=== PATIENT | male | born 1945 | race Caucasian/White ===

== ENCOUNTER → 2017-04-02 | Outpatient (CLI) | payer OTHER, MEDICARE ==
[~2017-04-02] MED LIST: AMLO5TAB2 PO; ANT25 PO
--- NOTE | 2017-04-02 11:18 | DIAGNOSTIC IMAGING REPORT ---
CHEST CT WITHOUT CONTRAST CT DOSE: 234.27 mGycm HISTORY: Follow-up pulmonary nodule. TECHNIQUE: Multiaxial CT images of the chest were performed without contrast. COMPARISON: Chest CT 09/19/2016. FINDINGS: The central airways are patent. No pleural effusions. No pneumothorax. Stable 9 mm irregular density within the left lung apex on image 56. Stable 6 mm nodule within the right lung apex on image 58. There is a 2 mm subpleural nodule within the right upper lobe on image 108. This is of doubtful clinical significance given its small size. No mediastinal or hilar lymphadenopathy. The heart is normal in size. The visualized liver, spleen, and adrenal glands are unremarkable. IMPRESSION: Stable biapical pulmonary nodules with the largest on the left measuring 9 mm. Continued follow-up as described below. Please refer to below summary of Fleischner criteria recommendations for follow-up of incidental CT nodules (Deepak Garay, Guidelines for management of small pulmonary nodules detected on CT scans: A statement from the Fleischner Society, Radiology 237: [id number].) SOLID NODULES Solitary nodule size: <6 mm * Low risk patients: no follow-up needed * high risk patients: optional CT at 12 months Solitary nodule size: 6-8 mm * Low risk patients: follow-up at 6-12 months, then consider further follow-up at 18-24 months * high risk patients: initial follow-up CT at 6-12 months and then at 18-24 months if no change Solitary nodule size: >8 mm * either low or high risk patients - consider follow-up CT at 3 months, and/or CT-PET, and/or biopsy Multiple nodules size: <6 mm * Low risk patients: no routine follow-up * high risk patients: optional CT at 12 months Multiple nodules size: 6-8 mm * Low risk patients: follow-up at 3-6 months, then consider further follow-up at 18-24 months * high risk patients: follow-up at 3-6 months, then at 18-24 months if no change Multiple nodules size: >8 mm * Low risk patients: follow-up at 3-6 months, then consider further follow-up at 18-24 months * high risk patients: follow-up at 3-6 months, then at 18-24 months if no change Note: newly detected indeterminate nodule in persons 35 years of age or older. * Low risk patients: minimal or absent history of smoking and/or other known risk factors * high risk patients: history of smoking or of other known risk factors (e.g. first degree relative with lung cancer, or exposure to asbestos, radon, uranium) * if a nodule up to 8 mm is partly solid or is ground glass further follow-up is required after 24 months to exclude possible slow growing adenocarcinoma (IZAIAH) SUBSOLID NODULES Solitary pure ground-glass nodule * nodule size <6 mm - no CT follow-up required * nodule size >=6 mm - follow-up CT at 6-12 months, then every 2 years until 5 years Solitary part-solid nodule * nodule size <6 mm - no CT follow-up required * nodule size >=6 mm - follow-up CT at 3-6 months. If unchanged, and solid component remains <6 mm, then annual follow-up for 5 years Multiple subsolid nodules * nodule size <6 mm - follow-up CT at 3-6 months, consider further follow-up at 2 and 4 years if stable * nodule size >=6 mm - follow-up CT at 3-6 months, subsequent management based on the most suspicious nodule(s) Electronically signed by: Chadd Cat M.D. 04/02/2017 11:16 AM Dictated Date/Time: 04/02/2017 11:10 AM
== END | disposition home or self-care (01) ==
LOC: C.CTS 10:33
PROVIDERS: ATTEND Family Medicine
DX: R91.1 Solitary pulmonary nodule (principal)

== ENCOUNTER → 2017-10-04 | Outpatient (CLI) | payer OTHER, MEDICARE ==
--- NOTE | 2017-10-04 13:19 | DIAGNOSTIC IMAGING REPORT ---
(CHEST) THORAX WITHOUT CT DOSE: 251.20 mGycm HISTORY: RT SIDED PULMONARY NODULE TECHNIQUE: Multiaxial CT images of the chest were performed without contrast. A dose lowering technique was utilized adhering to the principles of ALARA. COMPARISON: Chest CT 04/02/2017. FINDINGS: Stable 8 mm irregular nodule within the left lung apex on image 54. Stable 5 mm nodule within the right lung apex on image 56. There is a new 3 mm nodule within the left upper lobe on image 83. There is a new 3 mm subpleural nodule within the superior segment of the left lower lobe on image 111. There is a new 3 mm groundglass nodule within the left lower lobe on image 172. A few new tiny scattered tree-in-bud nodular densities within the right lung base. These measure up to 3 mm. No new focal lung consolidations. The central airways are patent. T1 vertebral body hemangiomas again noted. No mediastinal or hilar lymphadenopathy. The heart is normal in size. The unenhanced liver, spleen, and adrenal glands are unremarkable. Normal caliber thoracic aorta. IMPRESSION: 1. No change in the biapical pulmonary nodules with the largest on the left measuring 8 mm. Continued follow-up as detailed below. 2. There are few new additional 3 mm groundglass nodules within the lungs and a few tiny tree-in-bud nodular opacities within the right lung base. These favor mild inflammatory/infectious change. These also bear watching on future examinations. Please refer to below summary of Fleischner criteria recommendations for follow-up of incidental CT nodules (Deepak Garay, Guidelines for management of small pulmonary nodules detected on CT scans: A statement from the Fleischner Society, Radiology 237: [phone].) SOLID NODULES Solitary nodule size: <6 mm * Low risk patients: no follow-up needed * high risk patients: optional CT at 12 months Solitary nodule size: 6-8 mm * Low risk patients: follow-up at 6-12 months, then consider further follow-up at 18-24 months * high risk patients: initial follow-up CT at 6-12 months and then at 18-24 months if no change Solitary nodule size: >8 mm * either low or high risk patients - consider follow-up CT at 3 months, and/or CT-PET, and/or biopsy Multiple nodules size: <6 mm * Low risk patients: no routine follow-up * high risk patients: optional CT at 12 months Multiple nodules size: 6-8 mm * Low risk patients: follow-up at 3-6 months, then consider further follow-up at 18-24 months * high risk patients: follow-up at 3-6 months, then at 18-24 months if no change Multiple nodules size: >8 mm * Low risk patients: follow-up at 3-6 months, then consider further follow-up at 18-24 months * high risk patients: follow-up at 3-6 months, then at 18-24 months if no change Note: newly detected indeterminate nodule in persons 35 years of age or older. * Low risk patients: minimal or absent history of smoking and/or other known risk factors * high risk patients: history of smoking or of other known risk factors (e.g. first degree relative with lung cancer, or exposure to asbestos, radon, uranium) * if a nodule up to 8 mm is partly solid or is ground glass further follow-up is required after 24 months to exclude possible slow growing adenocarcinoma (IZAIAH) SUBSOLID NODULES Solitary pure ground-glass nodule * nodule size <6 mm - no CT follow-up required * nodule size >=6 mm - follow-up CT at 6-12 months, then every 2 years until 5 years Solitary part-solid nodule * nodule size <6 mm - no CT follow-up required * nodule size >=6 mm - follow-up CT at 3-6 months. If unchanged, and solid component remains <6 mm, then annual follow-up for 5 years Multiple subsolid nodules * nodule size <6 mm - follow-up CT at 3-6 months, consider further follow-up at 2 and 4 years if stable * nodule size >=6 mm - follow-up CT at 3-6 months, subsequent management based on the most suspicious nodule(s) Electronically signed by: Chadd Cat M.D. 10/04/2017 1:17 PM Dictated Date/Time: 10/04/2017 1:05 PM
== END | disposition home or self-care (01) ==
LOC: C.CTS 12:26
PROVIDERS: ATTEND Nurse Practitioner Adult Health
DX: R91.1 Solitary pulmonary nodule (principal)

== ENCOUNTER → 2018-07-02 | Outpatient (CLI) | payer OTHER, MEDICARE ==
[2018-07-02 18:42] LABS: BASO % 0.4 %; BASO ABS # 0.03 K/uL (0-0.2); EOS % 2.1 %; EOS ABS # 0.17 K/uL (0-0.5); HEMATOCRIT 41.5 % (42-52); HEMOGLOBIN 14.3 g/dL (14.0-18.0); IG# 0.02 K/uL (0.00-0.02); LYMPH ABS # 2.13 K/uL (1.2-3.4); MEAN CORPUSCULAR HGB CONC 34.5 g/dl (32-36); MEAN PLATELET VOLUME 11.4 fL (7.4-10.4); MONO % 10.9 %; MONO ABS # 0.89 K/uL (0.11-0.59); NEUT % 60.4 %; NEUT ABS # 4.95 K/uL (1.4-6.5); PLATELET COUNT 199 K/uL (130-400); RED CELL DISTRIBUTION WIDTH CV 13.3 % (11.5-14.5); RED CELL DISTRIBUTION WIDTH SD 43.7 fL (36.4-46.3); WHITE BLOOD COUNT 8.19 K/uL (4.8-10.8)
[2018-07-02 19:19] LABS: ALKALINE PHOSPHATASE 77 U/L (45-117); ALT/SGPT 24 U/L (12-78); AST/SGOT 12 U/L (15-37); BLOOD UREA NITROGEN 18 mg/dl (7-18); CALCIUM 8.8 mg/dl (8.5-10.1); CARBON DIOXIDE 25 mmol/L (21-32); CREATININE 1.08 mg/dl (0.60-1.40); GLUCOSE 91 mg/dl (70-99); POTASSIUM 4.2 mmol/L (3.5-5.1); SODIUM 137 mmol/L (136-145); TOTAL PROTEIN 7.5 gm/dl (6.4-8.2)
== END | disposition home or self-care (01) ==
LOC: C.LAB 17:13
PROVIDERS: ATTEND Neuromusculoskeletal Medicine & OMM
DX: R53.83 Other fatigue (principal); R01.1 Cardiac murmur, unspecified; I10 Essential (primary) hypertension; R39.11 Hesitancy of micturition

== ENCOUNTER → 2018-07-04 | Outpatient (CLI) | payer OTHER, MEDICARE ==
--- NOTE | 2018-07-04 16:34 | ECHOCARDIOGRAM REPORT ---
*NOTICE TO RECEIVING DEMOCRAT AGENCY This information is strictly Confidential and protected under [place] law. [place] law prohibits you from making any further disclosure of this information unless further disclosure is expressly permitted by the written consent of the person to whom it pertains or is authorized by law. A general authorization for the release of medical or other information is not sufficient for this purpose. Hospital accepts no responsibility if the information is made available to any other person, INCLUDING THE PATIENT. Interpretation Summary * Name: ARDEN SPARROW Study Date: 07/04/2018 02:46 PM BP: 127/66 mmHg * Patient Location: [facility] [place] HR: 63 * : 1945 (M/d/yyyy) Gender: Male Height: 67 in * Age: 73 yrs Ethnicity: [place] Weight: 155 lb * Ordering Physician: Josiah Torre DO * Performed By: Lisette Pavon RDCS * * Reason For Study: Murmur * BSA: 1.8 m2 * -- Conclusions -- * Left ventricular systolic function is normal. * Aortic valve sclerosis moderate, without significant aortic valvular stenosis. * Right ventricular systolic pressure is normal. Procedure Details * A complete two-dimensional transthoracic echocardiogram was performed (2D, M-mode, Doppler and color flow Doppler). Left Ventricle * The left ventricle is normal in size. * There is normal left ventricular wall thickness. * Ejection Fraction = 60-65%. * Left ventricular systolic function is normal. * The left ventricular wall motion is normal. Right Ventricle * The right ventricle is normal in size and function. Atria * The left atrial size is normal. * Right atrial size is normal. Mitral Valve * The mitral valve is grossly normal. * Significant mitral regurgitation is absent. Tricuspid Valve * The tricuspid valve is not well visualized, but is grossly normal. * There is trace tricuspid regurgitation. * Right ventricular systolic pressure is normal. Aortic Valve * There is heavy calcification involving the non coronary cusp which is also poorly mobile * Aortic valve sclerosis moderate, without significant aortic valvular stenosis. * No hemodynamically significant valvular aortic stenosis. * Mild aortic regurgitation. * There is an eccentric jet of aortic insufficiency directed against the anterior mitral leaflet. Pulmonic Valve * The pulmonic valve is not well seen, but is grossly normal. Great Vessels * The aortic root is normal size. Pericardium/Pleural * There is no pericardial effusion. Great Vessels * Normal inferior vena cava diameter and respiratory variation suggests normal central venous pressure. MMode 2D Measurements and Calculations IVSd 0.93 cm LVIDd 4.6 cm LVIDs 2.9 cm LVPWd 1.1 cm IVS/LVPW 0.84 FS 36.8 % EDV(Teich) 96.3 ml ESV(Teich) 32.1 ml EF(Teich) 66.7 % EDV(cubed) 96.0 ml ESV(cubed) 24.3 ml EF(cubed) 74.7 % LV mass(C)d 161.0 grams LV mass(C)dI 88.7 grams/m\S\2 SV(Teich) 64.2 ml SI(Teich) 35.4 ml/m\S\2 SV(cubed) 71.7 ml SI(cubed) 39.5 ml/m\S\2 Ao root diam 3.4 cm Ao root area 8.9 cm\S\2 ACS 1.5 cm LA dimension 3.7 cm asc Aorta Diam 3.4 cm LA/Ao 1.1 LVOT diam 2.0 cm LVOT area 3.0 cm\S\2 LVAd ap4 24.6 cm\S\2 LVLd ap4 7.8 cm EDV(MOD-sp4) 64.7 ml EDV(sp4-el) 65.9 ml LVAs ap4 12.8 cm\S\2 LVLs ap4 5.8 cm ESV(MOD-sp4) 24.1 ml ESV(sp4-el) 23.8 ml EF(MOD-sp4) 62.7 % EF(sp4-el) 63.8 % LVAd ap2 31.4 cm\S\2 LVLd ap2 8.1 cm EDV(MOD-sp2) 106.5 ml EDV(sp2-el) 103.6 ml LVAs ap2 16.1 cm\S\2 LVLs ap2 6.2 cm ESV(MOD-sp2) 36.7 ml ESV(sp2-el) 35.6 ml EF(MOD-sp2) 65.5 % EF(sp2-el) 65.7 % LVLd %diff 3.2 % EDV(MOD-bp) 83.8 ml LVLs %diff 5.1 % ESV(MOD-bp) 30.6 ml EF(MOD-bp) 63.5 % SV(MOD-sp4) 40.6 ml SI(MOD-sp4) 22.4 ml/m\S\2 SV(MOD-sp2) 69.8 ml SI(MOD-sp2) 38.5 ml/m\S\2 SV(MOD-bp) 53.2 ml SI(MOD-bp) 29.3 ml/m\S\2 SV(sp4-el) 42.1 ml SI(sp4-el) 23.2 ml/m\S\2 SV(sp2-el) 68.1 ml SI(sp2-el) 37.5 ml/m\S\2 Doppler Measurements and Calculations MV E max farhat 80.5 cm/sec MV A max farhat 82.0 cm/sec MV E/A 0.98 MV dec time 0.25 sec Ao V2 max 200.9 cm/sec Ao max PG 16.1 mmHg Ao max PG (full) 9.3 mmHg GUDELIA(V,A) 2.0 cm\S\2 GUDELIA(V,D) 2.0 cm\S\2 LV V1 max PG 6.8 mmHg LV V1 max 130.4 cm/sec PA V2 max 124.9 cm/sec PA max PG 6.2 mmHg PA acc slope 692.6 cm/sec\S\2 PA acc time 0.13 sec TR max farhat 210.4 cm/sec PA pr(Accel) 22.0 mmHg
== END | disposition home or self-care (01) ==
LOC: C.CPL 14:34
PROVIDERS: ATTEND Neuromusculoskeletal Medicine & OMM
DX: R00.1 Bradycardia, unspecified (principal)

== ENCOUNTER 2021-02-14 11:14 | Observation (INO) ==
--- NOTE | 2021-02-13 10:53 | Anesthesiology Consultation ---
Date of Service February 13, 2021 Assessment & Plan (1) Encounter for pre-operative examination: Chart Review Chart Review: Acceptable Risk for Surgery (pending PRP DOS ) and Patient NOT seen in Pre Admission Testing -Will check PRP stat AM of surgery Per nursing assessment 02/13/2021, patient denies any recent travel. No known Covid infection in the past 90 days. No known Covid positive contacts or Covid related symptoms. Covid test 02/10/2021 = negative I&D right finger 01/19/2021 = done under MAC. No anesthesia issues noted per anesthesia record. History Surgery Operation Date: 02/14/21 13:00 Proposed Procedures p Right Ring Finger Partial Amputation - Nikita Patel MD Height/Weight Height: 5 ft 6.5 in Weight: 72.575 kg Allergies Allergy/AdvReac Type Severity Reaction Status Date / Time cefuroxime Allergy Mild Blisters Verified 02/13/21 09:59 Medications Home Medications Medication Instructions Recorded Confirmed Last Taken cholecalciferol (vitamin D3) 25 1,000 unit PO QAM 06/10/19 02/13/21 01/19/21 12:00 mcg (1,000 unit) capsule cyanocobalamin (vitamin B-12) 2,500 mcg PO QAM 06/10/19 02/13/21 01/19/21 12:00 2,500 mcg tablet multivitamin 1 tab PO QAM 06/29/19 02/13/21 01/19/21 12:00 omeprazole 40 mg capsule,delayed 40 mg PO QAM #90 cap 02/08/20 02/13/21 01/19/21 12:00 release atorvastatin 20 mg tablet 10 mg PO HS #90 tab 02/09/20 02/13/21 01/18/21 22:00 hydroxyzine HCl 25 mg tablet See Rx Instructions PO .qhs PRN 07/11/20 02/13/21 Unknown #60 tab cyclobenzaprine 10 mg tablet 10 mg PO HS PRN #7 tab 10/11/20 02/13/21 Unknown naproxen 500 mg tablet 500 mg PO BID PRN #14 tab 10/11/20 02/13/21 Unknown amlodipine 10 mg tablet 10 mg PO QAM #90 tab 12/20/20 02/13/21 01/19/21 12:00 lisinopril 40 mg tablet 40 mg PO QAM #90 tab 12/20/20 02/13/21 01/19/21 12:00 hydrocodone-acetaminophen 1 - 2 tab PO Q4H PRN #5 tab NS 01/22/21 02/13/21 Unknown sulfamethoxazole-trimethoprim 1 tab PO BID 7 Days #14 tab 01/22/21 02/13/21 Unknown [Bactrim DS] Past Medical History Medical History Cardiac murmur Does not follow with cardiology ECHO in 06/2018 showed AV sclerosis without significant AV stenosis GERD (gastroesophageal reflux disease) Hx of vertigo Hyperlipidemia Hypertension Lung nodule HX-UNDER OBSERVATION Osteoarthritis Past Family History Family History Brother Family history of diabetes mellitus Father Family history of esophageal cancer Other Family hx of colon cancer No family history of adverse response to anesthesia Denies family history of Ovarian cancer Prostate cancer Myocardial infarction Breast cancer Colorectal cancer Past Surgical History Surgical History History of carpal tunnel release RT/LEFT History of cataract surgery RT/LEFT History of colonoscopy History of tooth extraction Status post incision and drainage 01/19/21 Dr. Nikita Patel- Right ring finger incision and drainage Social History Smoking Status: Current some day smoker tobacco type: cigarettes Smoking cigarettes per day: 2 CIG WITHIN A WEEK Do You Dip or Chew Tobacco: No Hx Alcohol Use: Yes Alcohol type: beer alcohol intake frequency: a few times a month Hx Substance Use: Yes substance use type: marijuana Substance Use Type Other:: ON OCC SMOKES MARIJUANA-WILL REFRAIN Last Used Substance Other:: LAST USED 2 WEEKS AGO Testing Laboratory Results Laboratory Tests 02/08/21 02/09/21 10:49 11:22 WBC 8.89 Hgb 14.1 Hct 41.6 L Plt Count 307 Creatinine 1.09 Electrocardiogram Date: 01/19/21 Findings: + NSR @ (69 bpm) and + no change from (July 25, 2016 for cardio) Normal EKG. Echocardiogram Date: 07/04/18 EF: 60-65% LV Function: normal RWMA: + none Other Findings: no LVH Left ventricular systolic function is normal. Aortic valve sclerosis moderate, without significant aortic valvular stenosis. Mild AR. Right ventricular systolic pressure is normal. Other Testing Chest CT 07/29/2020 = no acute intrathoracic abnormality. No pleural effusion, airspace consolidation or adenopathy. By apical pleuralparenchymal scarring with unchanged irregular solid nodules measuring up to 8 mm within the left lung apex. Findings are unchanged dating back to 04/10/2016 suggestive of benign etiology. No new or enlarging nodules identified.
[~2021-02-14 11:14] MED LIST changes: -AMLO5TAB2 PO; -ANT25 PO; +LACTATED RINGER'S 1,000 ML IV SCH; +LR 15ML/HR IV SCH; +ROPIVACAINE 0.5% 5 MG/ML 30 ML VIAL ONE; +ceFAZolin 2000MG 2,000 MG/15 ML SYR IV SCH
[2021-02-14 12:00] LABS: BUN Creatinine Ratio 10.6 (10-20); Calcium 9.1 mg/dl (8.5-10.1); Creatinine Clr Calc Pharmacy 56.9 ml/min; Est GFR (Non-African American) 70.7
[2021-02-14] MEDS ORDERED: MIDAZOLAM HCL 1 MG/ML 2ML VIAL ONE ×2 (12:27→13:47)
[2021-02-14] MEDS ORDERED: fentaNYL citrate 100 MCG/2 ML VIAL ONE ×2 (12:27→14:21)
[2021-02-14] MEDS ORDERED: ATROPINE SULFATE 0.1 MG/ML 10ML SYR IV PRN (12:46)
[2021-02-14] MEDS ORDERED: ONDANSETRON INJ 2 MG/ML 2 ML VIAL IV PRN ×2 (12:46→16:39)
--- NOTE | 2021-02-14 13:30 | History & Physical Bridge Note ---
Date of Service February 14, 2021 History & Physical Bridge Note I have examined the patient, reviewed the History & Physical and in the interval since the performance of the History & Physical I have noted the following changes of clinical significance: no changes noted
[2021-02-14] MEDS ORDERED: LIDOCAINE HCL 1% 20 ML VIAL ONE (13:52)
[2021-02-14] MEDS ORDERED: BUPIVACAINE 0.5 % 5 MG/1 ML MPF 30ML VIAL ONE (13:52)
[2021-02-14] MEDS ORDERED: LIDOCAINE HCL 2% 2 ML VIAL/AMP(20MG/ML) INFIL ONE (14:07)
[2021-02-14] MEDS ORDERED: ONDANSETRON INJ 2 MG/ML 2 ML VIAL ONE (14:07)
[2021-02-14] MEDS ORDERED: PROPOFOL IV EMULSION 10 MG/ML 20 ML VIAL IV ONE ×2 (14:07)
[2021-02-14] MEDS ORDERED: PHENYLEPHRINE HCL 10 MG/ML VIAL ONE (14:13)
--- NOTE | 2021-02-14 14:47 | Fluoroscopy Report ---
FL finger RT 2V CLINICAL HISTORY: RIGHT RING FINGER AMPUTATION COMPARISON STUDY: Right fourth finger radiographs February 01, 2021. Right hand MRI February 08, 2021. FLUOROSCOPY TIME: 1 second. FLUOROSCOPIC IMAGES: 1 FINDINGS: Fluoroscopy was provided during amputation of the right fourth finger at the level of the p roximal shaft of the middle phalanx. Expected postoperative findings are noted. IMPRESSION: Fluoroscopy provided during right fourth finger amputation, as described above. ACT 112: Negative or not required by law. Electronically signed by: Kamari Woo M.D. 02/14/2021 2:46 PM
--- NOTE | 2021-02-14 14:59 | Operative Report ---
Post Operative Report Pre & Post Diagnosis Operation Date: 02/14/21 13:00 Pre-Op Diagnosis: Right Ring Finger Osteomyelitis Post-Op Diagnosis: Right Ring Finger Osteomyelitis I identified the patient and participated in the time-out.: Yes Procedure Operation Date: 02/14/21 13:00 Actual Procedures p Right Ring Finger Partial Amputation(Right) - Nikita Patel MD Surgeon Nikita Patel MD Field Sampling Technician Lesvia Zaragoza, no resident or fellow available. Estimated Blood Loss 2 Findings Consistent with Post-Op Diagnosis Specimens Swab for culture, bone for culture and amputated finger for specimen to check for osteomyelitis. Anesthesia Type General Regional Disposition Accompanied Patient To Recovery: No Disposition: Recovery Room Indications Patient 76. He had a injury to the right ring finger with a snowblower. He tri ed to treat this at home initially and about 7 or 8 days later came in with what turned out to be probable septic arthritis of the DIP joint. This was treated with surgery however things have progressively worsened. He has continued swelling and some drainage as well as radiographic evidence on x-ray and MRI of probable osteomyelitis in the tissue/bone surrounding the DIP joint. Options were discussed and I recommended a partial amputation and he agreed to proceed. Description of Procedure Informed consent obtained. Patient identified. He identified the operative site as the right ring finger. I marked with my initials. A preoperative surgical timeout was performed. Preop dose of IV antibiotics was given. He was taken to the operating room positioned supine on the operating room table. Tourniquet applied to the right arm. The limb was prescrubbed prepped and draped with Betadine in the usual sterile fashion. The DIP joint was floppy and unstable. The finger was mildly swollen and erythematous. The dorsal wound was completely healed. There was a 2 mm opening on the volar aspect of the DIP flexion crease where there was some drainage present. Fluoroscopic guidance was utilized throughout the procedure. The limb was exsanguinated with the Esmarch. The finger was not wrapped with the wrapping began at the level of the hand proceeded proximally and the tourniquet was inflated to 225 mmHg. A fishmouth incision was marked out. This was made to begin just proximal to the dorsal and particularly the palmar wound. The skin was then 5 sized full- thickness. This was followed by the division of the extensor tendon dorsally and some subperiosteal dissection proximally. Volarly the flexor digitorum profundus tendon was identified and transected. The bone was then removed using fluoroscopic guidance just distal to the midpoint. Unfortunately did not have adequate soft tissue to close this so an additional 2 mm were removed. This preserved 1-1/2 cm of the middle phalanx. The wound was copiously irrigated with sterile saline. There was no evidence of infection. There was some edema in the tissues but no purulent material. The bone was hard and not infected. The bone edges were beveled. The skin was then closed with 4-0 nylon using horizontal mattress and simple sutures. Tourniquet was let down and meticulous hemostasis was performed with electrocautery. A bulky soft sterile dressing was applied Xeroform 4 x 4's gauze wrap and Coban. On the back table a a culture was obtained through the volar wound in the finger which then entered into the DIP joint. Bone was resected from the distal phalanx at the level of the joint after opening this area up dorsally. This bone was very soft. The finger itself was sent for specimen particularly looking for osteomyelitis. These instruments were passed off and different instruments over utilized. The rongeur was cleaned with alcohol. He was awakened from anesthesia without difficulty and taken to the recovery room in stable condition. There were no complications. Counts were correct. Specimens were as mentioned above. Blood loss was 2 cc. At the conclusion of the operation I called his informed of my findings postop instructions were given. Plan on admitting him to the hospital. He will receive intravenous antibiotics. We will check the cultures and also get blood cultures. 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 We may consider a short course of intravenous antibiotics or changing him to orals depending on the circumstances. I attest to the content of the Intraoperative Record and any orders documented therein. Any exceptions are noted below.
--- NOTE | 2021-02-14 15:01 | Operative Report ---
Post Operative Report Pre & Post Diagnosis Operation Date: 02/14/21 13:00 Pre-Op Diagnosis: Right Ring Finger Osteomylitis Post-Op Diagnosis: Right Ring Finger Osteomylitis I identified the patient and participated in the time-out.: Yes Procedure Operation Date: 02/14/21 13:00 Actual Procedures p Right Ring Finger Partial Amputation(Right) - Nikita Patel MD Surgeon Nikita Patel M.D. Business Professor Lesvia Zaragoza PA-C; no fellow or resident available. Estimated Blood Loss 2 Findings Consistent with Post-Op Diagnosis Specimens right ringer finger; bone and soft tissue cultures Anesthesia Type General Regional Complications none Description of Procedure Patient was taken to the recovery room, placed under general anesthesia. Time out performed, prepped and draped in routine sterile fashion. I was present during the entire case and assisted with exposure, positioning, removal of finger, debridement, irrigation, closure and dressings, please see Dr. Patel's operative report for further detail. Patient was awakened and taken to the recovery room in stable condition. I attest to the content of the Intraoperative Record and any orders documented therein. Any exceptions are noted below.
[2021-02-14] MEDS: fentaNYL citrate 100 MCG/2 ML VIAL IV PRN ×4 (15:08→15:23)
[2021-02-14] MEDS ORDERED: HYDROmorphone INJ 1 MG/ML SYRINGE ONE ×2 (15:19→15:32)
[2021-02-14] MEDS: HYDROmorphone INJ 0.5 MG/0.5 ML SYR IV PRN ×4 (15:28→15:43)
[2021-02-14] MEDS ORDERED: NALOXONE HCL 0.4 MG/1 ML VIAL/CARP IV PRN (16:39)
[2021-02-14] MEDS ORDERED: TAMSULOSIN HCL 0.4 MG CAP PO PRN (16:39)
[2021-02-14] MEDS ORDERED: MAGNESIUM HYDROXIDE SUSP 30 ML UDC PO PRN (16:39)
[2021-02-14] MEDS ORDERED: METOCLOPRAMIDE HCL INJ 5 MG/ML 2 ML VIAL IV PRN (16:39)
[2021-02-14] MEDS ORDERED: SODIUM CHLORIDE 0.9% 1000ML 1,000 ML IV SCH (16:39)
[2021-02-14] MEDS ORDERED: bisacodyL 10 MG SUPP PR PRN (16:39)
[2021-02-14] MEDS ORDERED: HYDROmorphone INJ 0.5 MG/0.5 ML SYR IV PRN (16:39)
[2021-02-14] MEDS ORDERED: hydrOXYzine HCl 25 MG TAB PO PRN (16:39)
[2021-02-14] MEDS ORDERED: diphenhydrAMINE 50 MG/ML VIAL IV PRN (16:39)
[2021-02-14] MEDS ORDERED: traMADol HCL 50 MG TABLET PO PRN (16:39)
--- NOTE | 2021-02-14 17:28 | Anesthesiology Progress Note ---
Date of Service February 14, 2021 Anesthesia Post Procedure Vital Signs Vital Signs: Temp Pulse Pulse Resp BP Pulse Ox 02/14/21 17:00 70 16 134/85 98 02/14/21 16:30 36.8 C 78 16 114/69 99 02/14/21 16:15 36.6 C 69 16 101/65 99 02/14/21 16:05 63 16 108/59 L 99 02/14/21 15:50 67 16 112/61 99 02/14/21 15:40 62 16 109/60 99 02/14/21 15:30 80 16 120/56 L 99 02/14/21 15:20 83 16 125/66 99 02/14/21 15:10 93 H 16 141/72 H 100 02/14/21 15:02 36.8 C 104 H 16 124/88 98 02/14/21 11:40 36.7 C 92 H 18 169/67 H 96 Pain Intensity Right Finger: Pain Intensity: 4 Transfer of Care Handoff Completed per policy Notes Mental Status: alert / awake / arousable and participated in evaluation Patient Amnestic to Procedure: Yes Nausea / Vomiting: adequately controlled Pain: adequately controlled Airway Patency, RR, SpO2: stable & adequate BP & HR: stable & adequate Hydration State: stable & adequate Anesthetic Complications: no major complications apparent and Pt Satisfied with anesthetic care
[2021-02-14] MEDS: ACETAMINOPHEN 500 MG TAB PO SCH ×2 (17:31→23:51)
--- NOTE | 2021-02-14 17:40 | Progress Notes ---
DATE: 02/14/2021 The patient is resting comfortably in bed. I discussed with him the findings relevant to the surgical procedure. Everything went well. He is afebrile. His vital signs are stable. We discussed the plan in terms of following up on the studies, tests and giving antibiotics, which could be antibiotics at home.
[2021-02-14] MEDS: AMPICILLIN/SULBACTAM SOD 1,500 MG in 0.9 % SODIUM CHLORIDE 100 ML IV SCH ×2 (17:55→23:51)
[2021-02-14] MEDS ORDERED: DAPTOmycin 400 MG in SYRINGE 0 ML IV SCH (18:00)
[2021-02-14] MEDS: oxyCODONE HCL IR 5 MG TAB (IMMEDIATE RELEASE) PO PRN (19:55)
[2021-02-14] MEDS ORDERED: ATORVASTATIN 10 MG TAB PO SCH (21:00)
[2021-02-14] MEDS ORDERED: SENNA 8.6 MG TAB PO SCH (21:00)
[2021-02-14] MEDS: DOCUSATE SODIUM 100 MG CAP PO SCH (21:56)
[2021-02-15] MEDS: oxyCODONE HCL IR 5 MG TAB (IMMEDIATE RELEASE) PO PRN (03:06)
[2021-02-15] MEDS: AMPICILLIN/SULBACTAM SOD 1,500 MG in 0.9 % SODIUM CHLORIDE 100 ML IV SCH ×2 (05:05→12:07)
[2021-02-15 06:42] LABS: Hematocrit (blood only) 37.3 % (42-52); Hemoglobin 12.7 g/dL (14.0-18.0); Mean Corpuscular Hemoglobin 30.5 pg (25-34); Mean Corpuscular Volume 89.4 fL (80-100); Mean Platelet Volume 9.5 fL (7.4-10.4); Platelet Count 236 K/uL (130-400); RDW Coefficient of Variation 13.1 % (11.5-14.5); RDW Standard Deviation 42.5 fL (36.4-46.3); Red Blood Count 4.17 M/uL (4.7-6.1); White Blood Count 8.26 K/uL (4.8-10.8)
[2021-02-15 07:17] LABS: BUN Creatinine Ratio 12.8 (10-20); Creatinine Clr Calc Pharmacy 67.4 ml/min; Est GFR (African American) 97.8; Est GFR (Non-African American) 84.4; Potassium 3.9 mmol/L (3.5-5.1)
[2021-02-15] MEDS: ACETAMINOPHEN 500 MG TAB PO SCH (07:50)
[2021-02-15] MEDS ORDERED: amLODIPine BESYLATE 5 MG TAB PO SCH (09:00)
[2021-02-15] MEDS ORDERED: MULTIVITAMIN TAB PO SCH (09:00)
[2021-02-15] MEDS ORDERED: PANTOprazole 40 MG TAB PO SCH (09:00)
[2021-02-15] MEDS ORDERED: CHOLECALCIFEROL 1,000 UNITS 25 MCG TAB PO SCH (09:00)
[2021-02-15] MEDS ORDERED: CYANOCOBALAMIN (VITAMIN B-12) 2,500 MCG TAB.SUBL SL SCH (09:00)
[2021-02-15] MEDS ORDERED: lisinopril 40 MG TAB PO SCH (09:00)
[2021-02-15] MEDS: DOCUSATE SODIUM 100 MG CAP PO SCH (09:26)
--- NOTE | 2021-02-15 10:24 | Orthopedic Progress Note ---
Date of Service February 15, 2021 Assessment & Plan (1) Amputation of finger of right hand: POD 1- s/p partial amputation right ring finger Continue pain medication as ordered Regular diet Zofran PRN nausea/vomiting Cultures currently pending - continue IV Daptomycin and Unasyn Allowed out of bed as tolerated Encouraged finger and wrist range of motion Ice to right hand as needed for pain/swelling Elevation of right hand above heart to relieve pain/swelling. Will follow cultures results to determine discharge plan Findings discussed with Dr. Patel. All questions answered. Admission and Anticipated Discharge Date Admission Date: February 14, 2021 Subjective Patient doing well. having some pain today, but controlled with oxycodone and tylenol. Denies nausea now, but did have some last night, resolved with zofran. Able to eat this morning and feels fine now. Has been out of bed. Dressing is in place. Physical Exam Physical Exam: Exam of right hand: no distal edema, dressing loosely applied. clean, dry and intact. Tolerates full ROM of fingers and wrist without pain. Radial and ulnar pulses 1+, cap refill brisk in exposed fingers. Results & Data ([facility]) Vital Signs (Past 12 Hours) Vital Signs Temp Pulse Resp BP Pulse Ox 02/15/21 07:20 36.6 C 59 L 16 112/53 L 96 02/15/21 03:52 36.8 C 57 L 20 112/57 L 98 02/15/21 02:58 36.7 C 64 16 121/69 96 Laboratory Results Microbiology 02/14/21 14:21 Gram Stain - Final Finger,Right Ring 02/14/21 14:30 Gram Stain - Final Finger,Right Ring Gram stain shows no organisms - pending Blood cultures are pending
--- NOTE | 2021-02-15 14:45 | Discharge Summary ---
Date of Service February 15, 2021 Discharge Data Procedures Performed Operation Date: 02/14/21 13:00 Actual Procedures p Right Ring Finger Partial Amputation(Right) - Nikita Patel MD Hospital Course (1) Amputation of finger of right hand: Patient is s/p right ring finger partial amputation with Dr. Patel on 02/14/21. He tolerated his surgery well. Surgery was performed with general anesthesia. Surgery was performed at [facility]. He was given 2gm IV ancef for surgical prophylaxis He tolerated the procedure well without any complications. Postoperatively he was admitted for care to receive IV antibiotics and control pain. He was placed on IV Daptomycin and Unasyn for antibiotic coverage. His pain was well controlled with oral oxycodone and tylenol. he did develop some post operative nausea which was relieved with Zofran.He was encouraged to ice and elevate his right hand. he was allowed out of bed as tolerated. He was given a regular diet and his home medications were continued during his inpatient stay. On post operative day 1 he was doing well, safe out of bed and pain well controlled. Dressings were intact and left in pl val. His intra-operative cultures were pending and showed no growth to date. Due to his previous cultures results we decided to send him home on Augmentin. It was determined that he would not need IV antibiotics. He was deemed safe for discharge and was discharged to his home in stable condition on 02/15/21. He was discharge with oxycodone of pain and augmentin for 2 weeks. He will follow up w ith our office for a dressing change as scheduled on Saturday02/17/21 at 9:00 a.m. Discharge Instructions DIET: * Resume previous diet. MEDICATIONS: * Please take your prescriptions as instructed at your pre-op appointment and/or see medication discharge instructions listed above. * If concerns develop, call your physician's office at . * take pain medication as prescribed.- oxycodone 5mg 1 tab every 6 hours as needed for pain. * take antibiotics as prescribed - augmentin 875mg BID SPECIAL CARE INSTRUCTIONS: * Ice to right hand as needed for pain/swelling. * Elevate right upper extremity above your heart to relieve pain/swelling. * Allowed for full finger and wrist range of motion of right hand as tolerated. * Keep dressing clean, dry, intact. Keep finger covered at all times. Change dressings as needed. * Your surgical extremity may be discolored due to prepping agents used on the skin. A bluish-green tint is a normal variant and should not cause alarm. Call your doctor at [phone] if: * Temperature above 101 degrees * Pain not relieved by pain medicine ordered * There is increased drainage or redness from any incision * You have any unanswered questions, problems or concerns. FOLLOW UP VISIT: * If not already scheduled, please call the office at to schedule a follow-up appointment.
== END 2021-02-15 14:11 | disposition home or self-care (01) ==
LOC: 3E 11:14 → ASU 11:14